=== PATIENT | female | born 1950 | race Caucasian/White ===

== ENCOUNTER 2024-05-10 16:01 | Emergency (ER) | payer MEDICARE, BC, SELFPAY ==
[2024-05-10 16:02] VITALS: BMI 40.9
[2024-05-10 16:06] VITALS: BP 112/51
[2024-05-10 16:09] LABS: Glucose - Point of Care 133 mg/dl (70-99)
--- NOTE | 2024-05-10 16:10 | ED.GENMED ---
History of Present Illness
General
Chief Complaint: Abdominal Symptoms
Source: patient
Exam Limitations: none
Time Seen by Provider: 05/10/24 16:03
History of Present Illness
History of Present Illness:
See MDM
Past History
Past History
ED Past Medical History: Arrthythmia, HTN and NIDDM
ED Past Surgical History: Cholecystectomy
Social History
Tobacco: Non-smoker
Alcohol: None
Phy Exam
Physical Exam
Physical Exam:
See MDM
Course
Orders/Labs/Results
Orders:
Orders
05/10/24 16:05
Electrocardiogram (*1) Urgent
Reason for Study: Fatigue / Weakness
EKG- Treatment ONCE
05/10/24 16:36
Complete Blood Count/With Diff Urgent
Comprehensive Metabolic Panel Urgent
Troponin I Urgent
Abnormal Lab Results
05/10/2424
16:07 16:36
RBC 4.05 L 10^6/uL
(4.20-5.40)
Hgb 11.7 L g/dL
(12.0-16.0)
Hct 35.0 L %
(37.0-47.0)
RDW 15.1 H %
(11.5-14.5)
Absolute Monos (auto) 0.7 H 10^3/uL
(0.1-0.6)
Immature Gran % 0.7 H %
(0-0.5)
Monocytes % 11.8 H %
(1.7-9.3)
Carbon Dioxide 20 L mmol/L
(22-30)
BUN 34 H mg/dl
(7-17)
Creatinine 1.4 H mg/dL
(0.6-1.0)
Glucose 134 H mg/dl
(70-99)
AST 38 H U/L
(14-36)
POC Glucose 133 H mg/dl
(70-99)
05/10/24 16:36
05/10/24 16:36
Vital Signs
Initial and Last Documented VS:
Initial Vital Signs
Temp
98.6 F
05/10/24 16:04
Last Documented Vital Signs
Temp Pulse Resp BP Pulse Ox
98.6 F 72 16 112/51 95
05/10/24 16:11 05/10/24 17:30 05/10/24 17:30 05/10/24 16:11 05/10/24 16:11
MDM/Problems Addressed
Differential Diagnosis Includes:
HPI and MDM Narrative:
73-year-old female presenting with resolved nausea and lightheadedness. Patient developed the symptoms while at a restaurant. She was eating soup and felt dizzy and lightheaded. Patient states she felt she was going to pass out. Throughout this
time, she denied any palpitations, chest pain or shortness of breath. On arrival, symptoms have already self resolved. She does have a history of A-fib but states she has not been in A-fib for several years. We discussed the possibility of a
cardiac arrhythmia causing her symptoms. Regardless, she is in sinus rhythm now. Will obtain basic blood work and continue to reassess. Patient states she is already feeling back to her normal self
Physical exam
General: Well appearing and non-toxic
HEENT: protecting airway
Neck: appears supple
CV: No evidence of cyanosis. Regular rate and rhythm
Resp: No accessory muscle use
Abd: Non-distended
Extremities: Lymphedema noted to both legs. Chronic per patient
Neuro: alert
Psych: Normal affect
Skin: Intact
Problems Addressed including Acute and Chronic Conditions affecting care:
1. Resolved nausea
Acuity: acute
Prognosis: stable
Details: Potentially in the setting of gastritis. Regardless, symptoms self resolved. EKG nonischemic. Will obtain basic blood work
Updates
Blood work without clinical significance. We did discuss the mild elevation of creatinine. Regardless, patient states he feels much better and feels comfortable going
Differential Diagnosis (but not limited to): Cardiac arrhythmia, gastritis
Testing considered: Chest x-ray
Drug therapy (if applicable): OTC meds, please see d/c instruction regarding Rx drugs
Amount and/or Complexity of Data Reviewed
Clinical info obtained from: Patient
External data reviewed: N/A
Labs I independently reviewed (but not limited to): Creatinine
Radiology: N/A
Pulse Ox: not hypoxic
EKG independently reviewed: Sinus rhythm, normal axis, no STEMI
[employer] Analyst: sinus rhythm
Critical Care: N/A
Risk of Complication:
Social Determinants of health: Good social support
Discussed with other providers: N/A
Escalation of Care includes Admit/Obs: After being observed in the Emergency Department, pt stable for discharge.
Occasional wrong word or 'sound a like' substitutions may have occurred due to the inherent limitations of voice recognition software. Read the chart carefully and recognize, using context, where substitutions have occurred.
*Critical Care Note
Total Time (30-74mins, 75-104mins- exclusive of procedures): Not Applicable
ED Attending Note
-
Portions of this chart may have been created with voice recognition software.� Occasional wrong word or��sound alike� substitutions may have occurred due to the inherent limitations of voice recognition software.
Discharge Plan
Departure
Patient Disposition: Home (Routine Discharge)
Date of Disposition: 05/10/24
Time of Disposition: 18:04
Patient with high blood pressure during this ER visit?: No
Discharge Problem:
Near syncope
Prescriptions:
No Action
metoprolol tartrate 100 MG tablet
100 mg PO BID
terazosin 1 MG capsule
1 mg PO HS
metformin 1,000 MG tablet
1,000 mg PO BID
lisinopril 40 MG tablet
20 mg PO BID
ezetimibe 10 MG tablet
10 mg PO HS
Victoza
1.8 ml SC DAILY
pioglitazone [Actos] 15 mg Tablet
30 mg PO DAILY
amlodipine 10 mg Tablet
10 mg PO DAILY
furosemide [Lasix] 40 mg Tablet
40 mg PO DAILY
acetaminophen 325 mg Tablet
650 mg PO Q8H PRN (Reason: Knee pain)
diphenoxylate-atropine 2.5-0.025 mg Tablet
1 tab PO QIDPRN PRN (Reason: diarehha)
pantoprazole 20 mg Tablet,Delayed Release (Dr/Ec)
20 mg PO HS
methenamine hippurate 1 gram Tablet
1 g PO BID
glimepiride 4 mg Tablet
4 mg PO BID
ondansetron 4 mg Tablet,Disintegrating
4 - 12 mg PO PRN PRN (Reason: nausea)
loratadine 10 mg Tablet
10 mg PO DAILY
cholestyramine-aspartame [Cholestyramine Light] 4 gram Powder In Packet
4 g PO DAILY
Ilumya 100 mg/mL Syringe
100 mg SC Q12W
fenofibrate
200 mg PO HS
ascorbic acid (vitamin C) [Vitamin C] 500 mg Tablet
500 mg PO DAILY
amiodarone 200 mg Tablet
200 mg PO DAILY Qty: 0 0RF
Rx Instructions:
STOP AFTER 30 DAYS
Eliquis 5 mg Tablet
5 mg PO BID Qty: 90 5RF
Referrals:
Delmy Dias CRNP [Family Provider] -
Activity Restrictions/Additional Instructions:
Please return for any worsening symptoms.
You may return at any time if you have further concerns.
Please follow up with your doctor at the first available appointment, preferably this week.
Thank you for choosing [facility].
Interventions
Interventions:
*Risk Screen - Suicide Last Done: 05/10/24 16:04
*General Assessment Last Done: 05/10/24 16:04
*Neglect/Abuse Screening Last Done: 05/10/24 16:04
ED- Fall Risk Assessment Last Done: 05/10/24 16:12
OX-Rbtggy-Zcqabfoopy Assessment Last Done: 05/10/24 17:41
Discharge Date and Time
Print Language: OCCITAN
[2024-05-10 16:11] VITALS: BP 112/51
[2024-05-10 16:49] LABS: % Basophils 0.5 % (0-2); % Eosinophils 2.7 % (0-6); % Immature Granulocytes 0.7 % (0-0.5); % Monocytes 11.8 % (1.7-9.3); % Neutrophils 58.3 % (42.2-75.2); Absolute Eosinophils 0.2 10^3/uL (0-0.7); Absolute Lymphocytes 1.5 10^3/uL (1.2-3.4); Absolute Monocytes 0.7 10^3/uL (0.1-0.6); Absolute Neutrophils 3.5 10^3/uL (1.4-6.5); Hemoglobin 11.7 g/dL (12.0-16.0); Mean Corp Hgb Conc. 33.4 g/dL (33.0-37.0); Mean Corpuscular Hgb 28.9 pg (27.0-31.0); Mean Corpuscular Volume 86.4 fL (81.0-99.0); Mean Platelet Volume 9.6 fL (7.4-10.4); Nucleated Red Blood Cells % 0 %; Platelet Count 306 10^3/uL (130-400); Red Blood Cell Count 4.05 10^6/uL (4.20-5.40); Red Cell Dist. Width 15.1 % (11.5-14.5); White Blood Cell Count 5.9 10^3/uL (4.8-10.8)
[2024-05-10 17:02] LABS: ALT (SGPT) 23 U/L (0-35); AST (SGOT) 38 U/L (14-36); Alkaline Phosphatase 44 U/L (38-126); Blood Urea Nitrogen 34 mg/dl (7-17); Calcium 9.9 mg/dl (8.4-10.2); Carbon Dioxide 20 mmol/L (22-30); Chloride 104 mmol/L (98-107); Glucose 134 mg/dl (70-99); Potassium 4.6 mmol/L (3.5-5.1); Sodium 136 mmol/L (135-145); Total Bilirubin 0.6 mg/dl (0.2-1.3); Total Protein 6.4 g/dl (6.3-8.2); eGFR 39.97
[2024-05-10 17:16] LABS: Troponin I < 0.012 ng/ml
[2024-05-10 17:40] VITALS: BP 135/63
[2024-05-10 18:00] VITALS: BP 129/62; BP 129/78
== END 2024-05-10 18:21 | disposition home or self-care (01) ==
LOC: EMR 16:01
PROVIDERS: EMERGENCY PHYSICIAN Student in an Organized Health Care Education/Training Program; FAMILY PHYSICIAN Nurse Practitioner Adult Health
DX: R55 Syncope and collapse (principal); I10 Essential (primary) hypertension; E11.9 Type 2 diabetes mellitus without complications; Z90.49 Acquired absence of other specified parts of digestive tract
CPT/HCPCS: 99283; 80053; 82962; 84484; 85025; 93005